=== PATIENT | male | born 1960 | race Caucasian/White ===

== ENCOUNTER 2024-10-16 14:41 | Emergency (ER) | payer BC ==
[2024-10-16] MEDS ORDERED: Lidocaine 1% PF 5 ML VIAL ONE (14:43)
== END 2024-10-16 15:14 | disposition home or self-care (01) ==
LOC: MADERS 14:41
DX: S61.243A Puncture wound with foreign body of left middle finger without damage to nail, initial encounter (principal); E78.5 Hyperlipidemia, unspecified; Z79.899 Other long term (current) drug therapy; W45.8XXA Other foreign body or object entering through skin, initial encounter
CPT/HCPCS: 99283